=== PATIENT | male | born 1975 | race Asian ===

== ENCOUNTER 2018-02-28 07:41 | Inpatient (IN) | payer OTHER ==
[~2018-02-28] VITALS: Ht 177.8 cm; Wt 71.7 kg
[~2018-02-28 07:41] MED LIST: ALLEGRA-D 12 H1 EAC1 PO; AMOXICILLIN875 MG PO; AZITHROMYCIN 2250 MG PO; BAYER CHEWABLE81 MG PO; BIRLINTA; BRILINTA90 MG PO; DOXYCYCLINE 10100 MG PO; EFFIENT10 MG; LO-DOSE ASPIRIN81 M1 PO; MUCINEX TA600 MG/TA2 PO; NITROGLYCERIN0.4 MG SL; NITROGLYCERIN0.4 MG SUBLING; PERCOCET 5-3251 EACH PO; PROMETHAZINE-D120 ML PO; PROVENTIL HFA6.7 G1 INH; RED YEAST RICE600 M1 PO; TYLENOL325 MG PO; VENTOLIN HFA INH8 GM INH; ZOCOR40 MG PO; [UNRECOGNIZED DRUG - OTHER] PO
[2018-02-28 07:45] VITALS: BP 152/104
[2018-02-28] MEDS ORDERED: HAWTHORN150 MG PO (07:53)
[2018-02-28 08:10] LABS: ABSOLUTE BASOPHILS 0.1 thou/uL (0.0-0.2); ABSOLUTE EOSINOPHILS 0.1 thou/uL (0.0-0.7); ABSOLUTE LYMPHOCYTES 3.6 thou/uL (0.8-5.3); ABSOLUTE MONOCYTES 0.7 thou/uL (0.0-1.2); ABSOLUTE NEUTROPHILS 5.5 thou/uL (1.6-8.1); BASOPHILS 0.9 %; EOSINOPHILS 1.1 %; HEMATOCRIT 48.6 % (42.0-52.0); HEMOGLOBIN 16.4 gm/dL (14.0-18.0); MCH 30.5 pg (26.0-34.0); MCHC 33.7 g/dL (28.0-37.0); MCV 90.4 fL (80.0-100.0); MONOCYTES 6.7 %; MPV 11.3 fl. (7.2-11.1); NUCLEATED RBCS 0 /100WBC; POLYS 55.3 %; RBC 5.37 mil/uL (4.50-6.00); RDW-CV 14.2 % (10.5-14.5)
[2018-02-28 08:18] LABS: ANION GAP 6 mmol/L (7-16); BUN 10 mg/dL (7-18); CHLORIDE 102 mmol/L (98-107); CO2 30 mmol/L (21-32); GLUCOSE 129 mg/dL (70-99); POTASSIUM 3.9 mmol/L (3.5-5.1); SODIUM 138 mmol/L (136-145)
[2018-02-28 08:25] LABS: ALKALINE PHOSPHATASE 71 U/L (46-116); MAGNESIUM 1.8 mg/dL (1.8-2.4); SGOT 13 U/L (15-37); SGPT 25 U/L (30-65); TOTAL BILIRUBIN 0.4 mg/dL (<0.1-1.0); TOTAL PROTEIN 7.7 g/dL (6.4-8.2); TROPONIN-I LEVEL <0.06 ng/mL (<0.06)
[2018-02-28 09:05] LABS: PLATELET ESTIMATE ADEQUATE
--- NOTE | 2018-02-28 10:25 | EKG ---
[place] [address] ELECTROCARDIOGRAM REPORT Name: CELIA SHERIDAN Room: [place] [address] ADM IN [facility].#: [id number] Admission: 02/28/18 Attend Phys: Lio Hoffman MD Discharge: Date of : 77 Report #: [id number] THIS REPORT FOR: //name// [facility] ED Test Date: 2018-02-28 Test Time: 07:45:15 Pat Name: CELIA SHERIDAN Department: Room: [facility] Gender: M Rehab Consultant: PRASANNA : 1975 Requested By: Bubba Harp Order Number: [id number] MD: Long Negron Measurements Intervals [place] Rate: 71 P: 45 [place]: 155 QRS: 59 QRSD: 93 T: 22 QT: 341 QTc: 371 Interpretive Statements Sinus rhythm Consider left ventricular hypertrophy ST elev, probable normal early repol pattern Baseline wander in lead(s) V3,V5 Compared to ECG 02/08/2016 14:23:17 Sinus bradycardia no longer present ST (T wave) deviation still present Electronically Signed On 02-28-2018 10:24:46 ACCOUNTANT AUDITOR by Long Negron [email or web address] <ELECTRONICALLY SIGNED> By: Long Negron MD, FACC 02/28/18 1024 0745 0745 Long Negron MD, FACC /EPI
[2018-02-28 10:35] LABS: PLATELET COUNT* 209 thou/uL (150-400)
[2018-02-28 11:13] VITALS: BP 127/81
[2018-02-28 11:25] VITALS: BP 129/81
--- NOTE | 2018-02-28 12:44 | NUR ---
PT ARRIVED ON UNIT AT 1125, C/O DULL ACHE TO LEFT SIDE OF CHEST, RATING AT A 2/10. 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 PT IS UP AD NATHALIE, A&O X4, ASSESSMENT COMPLETE, ORIENTED PT TO ROOM AND CALL LIGHT.
[2018-02-28 14:21] LABS: CHOLESTEROL 212 mg/dL (<200); HDL CHOLESTEROL 43 mg/dL (>40); LDL CHOLESTEROL 149 mg/dL (<100); TC:HDL 4.9 Ratio (Not establshd); TRIGLYCERIDE 100 mg/dL (<150); VLDL 20 mg/dL (<40)
[2018-02-28 14:41] LABS: SERUM ASSESSMENT Clear
[2018-02-28 20:10] VITALS: BP 123/86
[2018-03-01] VITALS: BP 123/84
[2018-03-01 02:23] LABS: ABSOLUTE BASOPHILS 0.1 thou/uL (0.0-0.2); ABSOLUTE EOSINOPHILS 0.2 thou/uL (0.0-0.7); ABSOLUTE LYMPHOCYTES 3.8 thou/uL (0.8-5.3); ABSOLUTE MONOCYTES 0.7 thou/uL (0.0-1.2); ABSOLUTE NEUTROPHILS 3.9 thou/uL (1.6-8.1); BASOPHILS 1.1 %; EOSINOPHILS 2.5 %; HEMATOCRIT 47.7 % (42.0-52.0); HEMOGLOBIN 16.3 gm/dL (14.0-18.0); LYMPHOCYTES 43.3 %; MCH 30.6 pg (26.0-34.0); MCHC 34.2 g/dL (28.0-37.0); MCV 89.3 fL (80.0-100.0); MONOCYTES 8.1 %; MPV 10.8 fl. (7.2-11.1); NUCLEATED RBCS 0 /100WBC; PLATELET COUNT* 216 thou/uL (150-400); RBC 5.33 mil/uL (4.50-6.00); RDW-CV 14.3 % (10.5-14.5); WBC 8.7 thou/uL (4.0-11.0)
[2018-03-01 03:09] LABS: CALCIUM 9.2 mg/dL (8.5-10.1); CREATININE 0.9 mg/dL (0.6-1.3)
[2018-03-01 04:00] VITALS: BP 137/76
--- NOTE | 2018-03-01 06:18 | NUR ---
VITALS WNL. SEE MAR. SEE CHARTING. HOURLY ROUNDING FOR SAFETY.
[2018-03-01 08:10] VITALS: BP 141/90
[2018-03-01 11:46] VITALS: BP 133/91
--- NOTE | 2018-03-01 13:40 | CON ---
[address] [address] CONSULTATION Name: CELIA SHERIDAN Room: [address] IN M.R.#: [id number] Admission: 02/28/18 Attend Phys: Lio Hoffman MD Discharge: Date of : 77 Report #: [id number] THIS REPORT FOR: //name// CC: Lio Burnham [facility] physician/PCP DATE OF SERVICE: 02/28/2018 PRIMARY CARE PHYSICIAN: None. CHIEF COMPLAINT: Chest pain, weakness, dizziness. HISTORY OF PRESENT ILLNESS: The patient is a 43-year-old man with a history of known coronary artery disease and prior PCI in 2015, was sitting at a meeting at work and he felt some dizziness, nauseous and felt he could pass out, but he did not pass out. He did have some associated chest pressure with that. He was worried because there were some similar symptoms to his heart attack. He presented to the Emergency Room, his ECG demonstrated a sinus rhythm, normal ST segments and upon my evaluation on telemetry, the patient is currently asymptomatic. He denies orthopnea or PND. He is very active and he denies chest pain or pressure. He has not been taking any medications. His only medications include supplements. He had stopped his aspirin, cholesterol, etc. drugs after his PCI. He does not have a primary care doctor. He does not follow up with Dr. Avila to perform his coronary intervention. PAST MEDICAL HISTORY: Cardiac catheterization in 01/10/2016 revealed a normal ejection fraction. He had a 50% LAD stenosis mid body and then an 80% stenosis in the proximal circumflex coronary artery and the right coronary artery had a proximal 90% stenosis and a previously placed stent in the distal right coronary artery, which was patent. He had bare metal stents placed in the proximal right coronary artery and circumflex and he was discharged and then he really did not follow up with us. Previous splenectomy, appendectomy and hyperlipidemia. He is not diabetic. He is not a smoker. He was smoking at the time of his previous PCI, but he has quit smoking. FAMILY HISTORY: Strong, his father has had MIs and a stent in his 50s. ALLERGIES: HE HAS ALLERGIES TO PLAVIX WITH RASH. SOCIAL HISTORY: He is . [place] a [place] [address] CONSULTATION Name: SHERIDANCELIA JEROME HDEZ Room: [address]#: [id number] Admission: 02/28/18 Attend Phys: Lio Hoffman MD Discharge: Date of : 77 Report #: [id number] HOME MEDICATIONS: None. REVIEW OF SYSTEMS: GENERAL: No fevers or chills. PULMONARY: No wheezing or cough. HEMATOLOGIC: No anemia or bleeding disorders. NEUROLOGIC: Denies seizures, headaches or blurry vision. THROAT: Denies any dysphagia. MUSCULOSKELETAL: No falls. SKIN: No rashes. GASTROINTESTINAL: No anorexia, nausea or vomiting. OBJECTIVE: VITAL SIGNS: Blood pressure is 127/81, pulse is 95, O2 sat is 99% on 2 liters. GENERAL: Thin, adult male. He is alert, in no apparent distress. HEENT: Eyes are intact. No facial asymmetry. NECK: Supple. No jugular venous distention. CARDIOVASCULAR: Regular. I cannot hear a murmur, S3 rub or gallop. LUNGS: Clear to auscultation. ABDOMEN: Soft, nontender. EXTREMITIES: No peripheral edema. SKIN: Warm and dry. LABORATORY DATA: Electrocardiogram shows a sinus rhythm with borderline LVH, but normal ST segments. His troponin I first set is 0.06. His hemoglobin is 16.4, platelet count is 209,000. Lipids are pending. His sodium is 138, potassium 3.9, creatinine is 1.0. AST is 13, ALT is 25. IMPRESSION: 1. Chest pain. His symptoms are somewhat atypical. They could be vasovagal, but he has been off of medications including aspirin and has a high risk for recurrence of coronary artery disease, so we will evaluate him with serial cardiac troponin levels and keep him on telemetry. We will plan for stress testing, if he rules out, 2. Coronary artery disease. It is recommended that the patient in lay terms, he should continue aspirin above and beyond everything else. 3. Hyperlipidemia. We will resurvey lipids and treat accordingly. 4. Vasovagal syncope. He did not have syncope, but his symptoms seem more compatible with this and I recommend lifestyle modifications. <ELECTRONICALLY SIGNED> By: Long Negron MD, FACC 03/01/18 1340 1220 1237Long Negron MD, FACC /nt
[2018-03-01 15:20] VITALS: BP 134/100
--- NOTE | 2018-03-01 16:46 | CARDNUC ---
[place] [address] CARDIAC NUCLEAR IMAGING REPORT Name: CELIA SHERIDAN Room: [address] IN [facility]#: [id number] Admission: 02/28/18 Attend Phys: Lio Hoffman, Discharge: Date of : 77 Date of Service: 03/01/18 1645 Report #: [id number] THIS REPORT FOR: //name// APPROVED REPORT Imaging Protocol: Rest Tc-99m/Stress Tc-99m 1 day Study performed: 02/28/2018 12:32:00 Indication: Chest pain, dizzy and nausea Patient Location: In-Patient Room #: [facility] Stress Tech: Hannah Spencer Stress Nurse: Kathleen Stout RN NM Tech:SERGO Morales Ht: 5 ft 10 in Wt: 159 lbs BSA: 1.89 m2 BMI: 22.81 Medical History Medical History: cad, hyperlipidemia, Medications: enoxaprin, asa 325 Allergies: hydrocodone, statins, plavix Cardiac Risk Factors: mi, cad, hyperlipidemia, family hx Previous Cardiac Procedures: PCI Exercise History: Physically active Resting Data Rest SPECT myocardial perfusion imaging was performed in supine position 30 minutes following the intravenous injection of 11.7 mCi of Tc-99m Sestamibi. Time of rest injection: 0850 Date: 03/01/2018 Time of rest imagin The images were gated to evaluate regional wall motion and calculate left ventricular ejection fraction. Administration Route: IV Administration Site: Left AC Exercise Stress At peak stress, the patient was injected intravenously with 31.6mCi of Tc-99m Sestamibi. Time of stress injection: 1045 Time of stress imagin Administration Route: IV Administration Site: Left AC Gated Stress SPECT was performed 30 [place] [address] CARDIAC NUCLEAR IMAGING REPORT Name: CELIA SHERIDAN Room: [address]#: [id number] Admission: 02/28/18 Attend Phys: Lio Hoffman, Discharge: Date of : 77 Date of Service: 03/01/18 1645 Report #: [id number] injection. The images were gated to evaluate regional wall motion and calculate left ventricular ejection fraction. Prone imaging was performed. Stress Test Details Stress Test: Exercise stress testing was performed using a Greg protocol. HR Max Heart Rate (APMHR): 178 bpm Resting HR: 53 bpm Target HR (85% APMHR): 151 bpm Max HR Achieved: 162 bpm % of APMHR: 91 Recovery HR: 77 bpm HR response to stress: Normal HR response to stress BP Resting BP: 143/82 mmHg Max BP: 218/83 mmHg Recovery BP: 145/99 mmHg BP response to stress: Normal blood pressure response to stress. ECG Resting ECG: Sinus Rhythm Stress ECG: Sinus Rhythm ST Change: None Recovery ECG: Sinus Rhythm Recovery ST Change: None Clinical Reason for Termination: Fatigue Stress Symptoms: None Exercise duration: 9 min 7 sec Exercise capacity: 10.31 METs Functional Aerobic Impairment 90% Stress ECG Conclusion negative ecg Study Quality Study: Good Artifact: Mild Increased GI uptake Lung Uptake: Normal Study Data At rest, the left ventricular ejection fraction was 65%.. [place] [address] CARDIAC NUCLEAR IMAGING REPORT Name: CELIA SHERIDAN Room: [address] IN [facility]#: [id number] Admission: 02/28/18 Attend Phys: Lio Hoffman, Discharge: Date of : 77 Date of Service: 03/01/18 1645 Report #: [id number] Post stress, the left ventricular ejection was 77%.. SSS: 0 SRS: 2 SDS: -2 Perfusion STRESS SPECT images show a small mild intensity inferior defect which is noted to be fixed when compared to the SPECT rest images. There is uniform uptake of tracer in all other segments. The prone set shows normalization of the inferior defect indicating it is likely artifact. No reversible defects are seen. Wall Motion normal all segments Nuclear Conclusion ECG Findings: negative for ischemia Clinical Findings: negative for ischemia Nuclear Findings: negative for ischemia Exercise Capacity: normal Left Ventricular Function: normal Risk Study: low Negative exercise perfusion nuclear stress test for ischemia or infarct. <Conclusion> negative ecg <ELECTRONICALLY SIGNED> By: Long Negron MD, FACC 03/01/181644 44 44 Long Negron MD, FACC /INF
[2018-03-01] MEDS ORDERED: ASPIR-TRIN325 MG PO (16:58)
[2018-03-01 17:06] VITALS: BP 134/100
--- NOTE | 2018-03-01 18:19 | NUR ---
PT VSS AND STRESS TEST NEGATIVE. PT D/C'D TO HOME WITH NO COMPLICATIONS. PT EDUCATED TO CHECK BP EVERYDAY AT THE SAME TIME AFTER RELAXING FOR 15 MINUTES AND RECORD BP DAILY AND TAKE TO FOLLOW UP PCP APPOINTMENT IN 2 WEEKS. PT VERBALIZED UNDERSTANDING TO DC INSTRUCTIONS AT THIS TIME. IV REMOVED INTACT AND PT AMBULATED OUT WITH STEADY GAIT WITH BURN TABLE OPERATOR. HOURLY ROUNDING MAINTAINED THIS SHIFT. WILL SIGN OFF CARE AT THIS TIME.
== END 2018-03-01 18:20 | disposition home or self-care (01) | DRG 303 ==
LOC: M.ERS 07:41 → M.TBA-ER 08:32 → M.2W 08:32
PROVIDERS: Emergency Medicine Emergency Medical Services; Internal Medicine Cardiovascular Disease; ADMIT Internal Medicine
DX: I25.119 Atherosclerotic heart disease of native coronary artery with unspecified angina pectoris (principal); I10 Essential (primary) hypertension; F12.90 Cannabis use, unspecified, uncomplicated; E78.5 Hyperlipidemia, unspecified; I25.2 Old myocardial infarction; Z95.5 Presence of coronary angioplasty implant and graft; Z90.81 Acquired absence of spleen; Z90.49 Acquired absence of other specified parts of digestive tract; Z88.6 Allergy status to analgesic agent; Z88.8 Allergy status to other drugs, medicaments and biological substances; Z87.891 Personal history of nicotine dependence; Z82.49 Family history of ischemic heart disease and other diseases of the circulatory system; Z91.19 Patient's noncompliance with other medical treatment and regimen

== ENCOUNTER 2020-01-03 18:21 | Observation (INO) | payer OTHER ==
[~2020-01-03] VITALS: Ht 177.8 cm; Wt 78.0 kg
[~2020-01-03 18:21] MED LIST changes: +ASPIR-TRIN325 MG PO; +HAWTHORN150 MG PO
[2020-01-03 18:24] VITALS: BP 153/92
[2020-01-03 19:47] LABS: ABSOLUTE EOSINOPHILS 0.2 thou/uL (0.0-0.7); ABSOLUTE LYMPHOCYTES 4.2 thou/uL (0.8-5.3); ABSOLUTE MONOCYTES 0.7 thou/uL (0.0-1.2); ABSOLUTE NEUTROPHILS 5.5 thou/uL (1.6-8.1); BASOPHILS 0.3 %; EOSINOPHILS 2.3 %; HEMATOCRIT 43.1 % (42.0-52.0); HEMOGLOBIN 14.5 gm/dL (14.0-18.0); LYMPHOCYTES 39.2 %; MCH 30.2 pg (26.0-34.0); MCHC 33.5 g/dL (28.0-37.0); MCV 90.2 fL (80.0-100.0); MONOCYTES 6.6 %; MPV 10.7 fl. (7.2-11.1); NUCLEATED RBCS 0 /100WBC; PLATELET COUNT* 207 thou/uL (150-400); POLYS 51.6 %; RBC 4.78 mil/uL (4.50-6.00); RDW-CV 13.7 % (10.5-14.5); WBC 10.6 thou/uL (4.0-11.0)
[2020-01-03 19:56] LABS: CALCIUM 8.1 mg/dL (8.5-10.1); CREATININE 0.8 mg/dL (0.6-1.3); POTASSIUM 3.8 mmol/L (3.5-5.1)
[2020-01-03 20:06] LABS: ALBUMIN 3.3 g/dL (3.4-5.0); MAGNESIUM 1.9 mg/dL (1.8-2.4); TOTAL BILIRUBIN 0.1 mg/dL (<0.1-1.0); TOTAL PROTEIN 6.5 g/dL (6.4-8.2)
[2020-01-03 23:07] VITALS: BP 132/87
[2020-01-04 00:06] VITALS: BP 128/79
[2020-01-04 04:15] VITALS: BP 115/67
[2020-01-04 07:30] VITALS: BP 134/89
[2020-01-04 10:54] LABS: CHOLESTEROL 200 mg/dL (<200); HDL CHOLESTEROL 32 mg/dL (>40); LDL CHOLESTEROL 131 mg/dL (<100); TC:HDL 6.3 Ratio (Not establshd); TRIGLYCERIDE 186 mg/dL (<150); VLDL 37 mg/dL (<40)
[2020-01-04 10:55] LABS: SERUM ASSESSMENT Clear
[2020-01-04 11:28] VITALS: BP 142/91
[2020-01-04] MEDS ORDERED: NEXIUM40 MG PO (12:11)
[2020-01-04 13:22] VITALS: BP 142/91
--- NOTE | 2020-01-06 08:41 | EKG ---
[place] [address] ELECTROCARDIOGRAM REPORT Name: SHERIDANCELIA CANO LEMUEL Room: [address]#: [id number] Admission: 01/03/20 Attend Phys: Lio Hoffman, Discharge: 01/04/20 Date of : 77 Date of Service: 01/03/20 1825 Report #: [id number] THIS REPORT FOR: //name// [facility] ED Test Date: 2020-01-03 Test Time: 18:25:51 Pat Name: CELIA SHERIDAN Department: Room: [facility] Gender: M Wet Char Conveyor Tender: NIGEL : 1975 Requested By: Bubba Harp Order Number: [id number] MD: Alexis Burnham Measurements Intervals [place] Rate: 61 P: 39 [place]: 178 QRS: 70 QRSD: 94 T: 24 QT: 362 QTc: 365 Interpretive Statements Sinus rhythm ST elev, probable normal early repol pattern Compared to ECG 02/28/2018 07:45:15 No significant changes Electronically Signed On 01-06-2020 8:41:42 PRODUCT DESIGN ENGINEER by Alexis Burnham [email or web address] <ELECTRONICALLY SIGNED> By: Carolyn Burnham MD, [facility] 01/06/20 0841 24 24 Carolyn Burnham MD, [facility] /EPI
== END 2020-01-04 13:32 | disposition home or self-care (01) ==
LOC: M.ERS 18:21 → M.TBA-ER 21:54 → M.2W 21:54
PROVIDERS: Emergency Medicine Emergency Medical Services; Registered Nurse; ADMIT Internal Medicine; ATTEND Internal Medicine
DX: R07.89 Other chest pain (principal); I25.10 Atherosclerotic heart disease of native coronary artery without angina pectoris; K21.9 Gastro-esophageal reflux disease without esophagitis; I10 Essential (primary) hypertension; E78.5 Hyperlipidemia, unspecified; F17.200 Nicotine dependence, unspecified, uncomplicated; Z79.82 Long term (current) use of aspirin; Z79.899 Other long term (current) drug therapy